=== PATIENT | male | born 1955 | race Caucasian/White ===

== ENCOUNTER 2020-05-14 07:14 | Day surgery (SDC) | payer OTHER ==
[~2020-05-14] VITALS: Ht 165.1 cm; Wt 98.8 kg
[2020-05-14] MEDS ORDERED: CHLORHEXIDINE 15 ML UDC MM STA (07:40)
[2020-05-14 07:46] VITALS: BP 158/80
[2020-05-14] MEDS ORDERED: PARI1CAP3 PO (07:57)
[2020-05-14] MEDS ORDERED: FURO20TA3 PO (07:57)
[2020-05-14] MEDS ORDERED: METO25TA35 PO (07:57)
[2020-05-14] MEDS ORDERED: GLYB1.252 PO (07:57)
[2020-05-14] MEDS ORDERED: IBRU420T PO (07:57)
[2020-05-14] MEDS ORDERED: AMLO-211 PO (07:57)
[2020-05-14] MEDS ORDERED: HYDR-3342 PO (07:57)
[2020-05-14] MEDS ORDERED: LACTATED RINGERS 1,000 ML IV SCH (08:00)
[2020-05-14] MEDS ORDERED: ACETAMINOPHEN 500 MG TABLET PO ONE (08:00)
[2020-05-14 08:43] LABS: MEAN CORPUSCULAR HEMOGLOBIN 34.9 pg (27.5-34.5); MEAN CORPUSCULAR HGB CONC 33.1 g/dL (33.2-36.2); MEAN PLATELET VOLUME 9.2 fL (7.4-10.4); PLATELET COUNT 96 x10^3/uL (130-400); RED BLOOD COUNT 2.91 x10^6/uL (4.38-5.82); RED CELL DISTRIBUTION WIDTH 14.7 % (9.4-14.8)
[2020-05-14 09:02] LABS: ALBUMIN 3.5 g/dL (3.4-5.0); ANION GAP 9 mmol/L (5-15); CALCIUM 8.3 mg/dL (8.5-10.1); CHLORIDE 101 mmol/L (98-107)
[2020-05-14 09:08] LABS: ALANINE AMINOTRANSFERASE 25 U/L (12-78); ALKALINE PHOSPHATASE 64 U/L (45-117); BILIRUBIN,TOTAL 0.5 mg/dL (0.2-1.0); CREATININE 5.63 mg/dL (0.7-1.3); TOTAL PROTEIN 7.3 g/dL (6.4-8.2)
[2020-05-14 09:19] LABS: MD YES
[2020-05-14 09:20] LABS: LYMPH#(MANUAL) 26.79 x10^3/uL (1-3.4); LYMPHS% (MANUAL) 94 % (22-44); SEG#(MANUAL) 1.71 x10^3/uL (1.8-6.8); SEGS% (MANUAL) 6 % (42-75)
[2020-05-14 09:21] LABS: <PLATELET ESTIMATE> DECREASED; ANISOCYTOSIS 1+; LARGE PLATELETS 1+
[2020-05-14] MEDS ORDERED: THROMBIN 5,000 UNIT VIAL TP ONE (10:40)
[2020-05-14] MEDS ORDERED: BUPIVACAINE/PF 0.5% ONE (10:40)
[2020-05-14] MEDS ORDERED: PAPAVERINE 30 MG/ML, 2ML ONE (10:40)
[2020-05-14] MEDS ORDERED: HEPARIN 1,000 UNITS/ML, 10ML ONE (10:40)
[2020-05-14] MEDS ORDERED: PROTAMINE SULFATE 10 MG/ML, 5ML ONE (10:44)
[2020-05-14] MEDS ORDERED: EPINEPHRINE 1 MG/ML, 1ML ONE (10:46)
[2020-05-14] MEDS ORDERED: FENTANYL PF 250 MCG/5ML ONE (10:51)
[2020-05-14] MEDS ORDERED: PROMETHAZINE 25 MG/ML, 1ML IVPush PRN (11:00)
[2020-05-14] MEDS ORDERED: LABETALOL 5MG/ML, 20ML IV PRN (11:00)
[2020-05-14] MEDS ORDERED: FENTANYL PF 100 MCG/2ML IV PRN (11:00)
[2020-05-14] MEDS ORDERED: OXYcodone 5 MG/5 ML ORAL.SOL UDC PO PRN (11:00)
[2020-05-14] MEDS ORDERED: EPHEDRINE 50 MG/ML, 1ML IVPush PRN (11:00)
[2020-05-14] MEDS ORDERED: hydrALAzine 20 MG/ML, 1ML IV PRN (11:00)
[2020-05-14] MEDS ORDERED: HYDROmorphone 1 MG/ML, 1ML INJ IVPush PRN (11:00)
[2020-05-14] MEDS ORDERED: ONDANSETRON 2MG/ML, 2ML IVPush PRN (11:00)
[2020-05-14] MEDS ORDERED: EPHEDRINE 50 MG/ML, 1ML ONE (11:29)
[2020-05-14] MEDS ORDERED: LIDOCAINE-MPF 2% ,5ML ONE (11:38)
[2020-05-14] MEDS ORDERED: PROPOFOL 10 MG/ML, 20ML ONE (11:38)
[2020-05-14] MEDS ORDERED: CEFAZOLIN 1,000 MG ONE (11:38)
[2020-05-14] MEDS ORDERED: DEXAMETHASONE 4 MG/ML, 5ML ONE (11:38)
[2020-05-14] MEDS ORDERED: SODIUM CHLORIDE 0.9% PF 10ML ONE (11:38)
[2020-05-14] MEDS ORDERED: ONDANSETRON 2MG/ML, 2ML ONE (11:38)
[2020-05-14] MEDS ORDERED: BUPIVACAINE/PF-EPI 0.5% 1:200K INFIL ONE (11:42)
== END 2020-05-14 17:00 | disposition home or self-care (01) ==
LOC: OUT 07:14
PROVIDERS: ATTEND Surgery
DX: E11.22 Type 2 diabetes mellitus with diabetic chronic kidney disease (principal); I13.2 Hypertensive heart and chronic kidney disease with heart failure and with stage 5 chronic kidney disease, or end stage renal disease; I50.9 Heart failure, unspecified; N18.6 End stage renal disease; C95.90 Leukemia, unspecified not having achieved remission; E66.9 Obesity, unspecified; Z68.36 Body mass index [BMI] 36.0-36.9, adult; Z20.822 Contact with and (suspected) exposure to COVID-19; Z79.84 Long term (current) use of oral hypoglycemic drugs; Z79.899 Other long term (current) drug therapy; Z87.891 Personal history of nicotine dependence
CPT/HCPCS: 36415; 36819; 71045; 80053; 85025; 87635; 93005; J0171; J0690; J1100; J1644; J2405; J2704; J2720; J3010; J2440